=== PATIENT | male | born 1980 | race African-American/Black ===

== ENCOUNTER 2020-08-10 17:20 | Inpatient (IN) | payer MEDICAID ==
[~2020-08-10] VITALS: Ht 182.9 cm; Wt 94.8 kg
[2020-08-10] MEDS ORDERED: ACETAMINOPHEN 325MG TABLET PO STA (18:40)
[2020-08-10] MEDS ORDERED: CEFTRIAXONE 1 G PREMIX 50 ML IV ONE (18:45)
[2020-08-10] MEDS ORDERED: AZITHROMYCIN 500 MG in DEXT 5% WATER 250 ML IV ONE (18:45)
[2020-08-10] MEDS ORDERED: SODIUM CHLORIDE 0.9% 1,000 ML IV ONE ×2 (18:45)
[2020-08-10 18:54] LABS: HEMATOCRIT. 30.6 % (42.0-52.0); HEMOGLOBIN. 10.7 g/dL (14.0-18.0); MEAN CORPUSCULAR HEMOGLOBIN 30.9 pg (28.0-32.0); PLATELET 298 x1000/uL (130-400); RED BLOOD CELL COUNT 3.47 mill/uL (4.7-6.1)
[2020-08-10] MEDS ORDERED: OSELTAMIVIR 75MG CAPSULE PO ONE (19:00)
[2020-08-10 19:02] LABS: CHLORIDE 106 mEq/L (98-107)
[2020-08-10 19:05] LABS: PROTHROMBIN TIME 10.8 sec (9.6-11.0)
[2020-08-10 19:09] LABS: BETA HYDROXYBUTYRATE 0.7 mMol/L (0.0-0.3); PLATELET ESTIMATE NORMAL
[2020-08-10 19:22] LABS: BG BASE EXCESS -6.8 mmol/L (-2.0-2.0); BG CARBOXYHEMOGLOBIN 0.3 % (0.5-1.5); BG DEOXYHEMOGLOBIN 4.9 % (0.0-5.0); BG FRACTION INSPIRED OXYGEN 100; BG HCO3 ACT 17.3 mmol/L (22.0-26.0); BG METHEMOGLOBIN 0.2 % (0.0-1.5); BG OXYGEN SATURATION 95.1 % (92.0-98.5); BG OXYHEMOGLOBIN 94.6 % (94.0-97.0); BG PH 7.378 (7.350-7.450); BG PO2 84.6 mmHg (75.0-100.0); BG SAMPLE SITE RIGHT RADIAL; BG TOTAL HEMOGLOBIN 11.1 g/dL (12.0-18.0); BG TOTAL RESPIRATORY RATE 30 b/min; BG VENT MODE MASK - BIPAP
[2020-08-10] MEDS ORDERED: DEXAMETHASONE 10 MG/ML VIAL IV ONE (20:15)
[2020-08-10] MEDS ORDERED: INSULIN REGULAR (HUMULIN R) UD 100 UNITS/ML SYR SUBCUT ONE (20:30)
[2020-08-10] MEDS ORDERED: INSULIN REGULAR (HUMULIN R) 300UNITS/3ML VIAL SUBCUT SCH (22:30)
[2020-08-11 00:07] LABS: CLARITY URINE CLEAR (CLEAR); COLOR URINE YELLOW (YELLOW); KETONES URINE NEGATIVE (NEGATIVE); LEUKOCYTE ESTERASE URINE NEGATIVE (NEGATIVE); NITRITE URINE NEGATIVE (NEGATIVE); OCCULT BLOOD URINE 2+ (NEGATIVE); PROTEIN URINE 3+ (NEGATIVE); SPECIFIC GRAVITY URINE 1.022 (1.005-1.030); UROBILINOGEN URINE 0.2 E.U./dL (0.2-1.0)
[2020-08-11] MEDS ORDERED: ZOLPIDEM TARTRATE 5MG TABLET PO PRN (06:15)
[2020-08-11] MEDS ORDERED: CLONIDINE 0.1MG TABLET PO PRN (06:15)
[2020-08-11] MEDS ORDERED: ALBUTEROL 6.7GM HFA INHALER ORI PRN (06:15)
[2020-08-11] MEDS ORDERED: GUAIFENESIN 200MG/10ML SUGAR FREE UDC PO PRN (06:15)
[2020-08-11] MEDS ORDERED: MAGNESIUM/ALUMINUM HYDROXIDE/SIMETHICONE 30ML UDC PO PRN (06:15)
[2020-08-11] MEDS ORDERED: AMLODIPINE 10MG TABLET PO SCH (06:15)
[2020-08-11] MEDS ORDERED: DOCUSATE SODIUM 100MG CAPSULE PO PRN (06:15)
[2020-08-11] MEDS ORDERED: ONDANSETRON HCL 4MG/2ML INJ IV PRN (06:15)
[2020-08-11] MEDS ORDERED: NITROGLYCERIN 0.4MG TABLET SL SL PRN (06:15)
[2020-08-11] MEDS ORDERED: DEXTROSE 50% WATER 50ML SYRINGE IV PRN ×2 (06:15→14:45)
[2020-08-11] MEDS: BLOOD SUGAR DIAGNOSTIC STRIP TEST SCH ×11 (06:30→23:45)
[2020-08-11] MEDS: INSULIN LISPRO 100 UNITS/ML SUBCUT SCH ×3 (06:30→16:30)
[2020-08-11] MEDS ORDERED: INSULIN LISPRO 100 UNITS/ML SUBCUT SCH (07:00)
[2020-08-11] MEDS: ALBUTEROL 6.7GM HFA INHALER ORI SCH ×4 (08:00→22:30)
[2020-08-11] MEDS ORDERED: DEXAMETHASONE 4MG/ML 1ML VIAL IV SCH (09:00)
[2020-08-11 09:31] LABS: HEMATOCRIT. 27.8 % (42.0-52.0); HEMOGLOBIN. 9.5 g/dL (14.0-18.0); MEAN CORPUSCULAR HEMOGLOBIN 30.4 pg (28.0-32.0); MEAN CORPUSCULAR VOLUME 88.8 fL (80.0-94.0); MEAN PLATELET VOLUME 9.4 fl (7.4-10.4); PLATELET 315 x1000/uL (130-400); RED BLOOD CELL COUNT 3.13 mill/uL (4.7-6.1); RED CELL DISTRIBUTION WIDTH 13.4 % (11.6-14.6)
[2020-08-11 09:34] LABS: CHLORIDE 111 mEq/L (98-107)
[2020-08-11 09:40] LABS: TOTAL IRON BINDING CAPACITY 101 ug/dL (250-450)
[2020-08-11] MEDS ORDERED: INSULIN GLARGINE UD 100 UNITS/ML SYR SUBCUT SCH (10:00)
[2020-08-11] MEDS: ASCORBIC ACID 500 MG TABLET PO SCH ×2 (10:10→21:31)
[2020-08-11] MEDS: ASPIRIN 325MG EC TABLET PO SCH (10:10)
[2020-08-11] MEDS: GUAIFENESIN 600MG ER TABLET PO SCH ×2 (10:10→21:31)
[2020-08-11] MEDS: FAMOTIDINE 20MG TABLET PO SCH (10:11)
[2020-08-11 10:53] LABS: VITAMIN B12 SERUM > 2000.0 pg/mL (211-911)
[2020-08-11] MEDS: ENOXAPARIN 30MG/0.3ML SYR SUBCUT SCH (11:00)
[2020-08-11] MEDS: ZINC SULFATE 220 MG ( 50 ) CAPSULE PO SCH (11:00)
[2020-08-11] MEDS: METOPROLOL TARTRATE 25MG TABLET PO SCH ×2 (11:00→21:31)
[2020-08-11] MEDS: SODIUM CHLORIDE 0.9% 1,000 ML IV SCH (15:02)
[2020-08-11 17:53] LABS: PLATELET ESTIMATE NORMAL
[2020-08-11 18:38] LABS: CREATINE KINASE 177 IU/L (39-308)
[2020-08-11 18:39] LABS: CREATINE KINASE MB FRACTION < 1.0 ng/mL (0.5-3.6)
[2020-08-11] MEDS ORDERED: INSULIN REGULAR (DRIP) 100 UNITS in SODIUM CHLORIDE 0.9% 99 ML IV SCH ×2 (20:30→21:12)
[2020-08-11] MEDS: CEFTRIAXONE 1 G PREMIX 50 ML IV SCH (20:33)
[2020-08-11] MEDS: DEXAMETHASONE 10 MG/ML VIAL IV SCH (20:33)
[2020-08-11] MEDS: AZITHROMYCIN 500 MG in DEXT 5% WATER 250 ML IV SCH (22:50)
[2020-08-11 23:38] LABS: CREATINE KINASE 160 IU/L (39-308)
[2020-08-11 23:39] LABS: CREATINE KINASE MB FRACTION < 1.0 ng/mL (0.5-3.6)
[2020-08-12] MEDS: BLOOD SUGAR DIAGNOSTIC STRIP TEST SCH ×22 (00:45→23:17)
[2020-08-12] MEDS: SODIUM CHLORIDE 0.9% 1,000 ML IV SCH ×3 (03:55→10:45)
[2020-08-12 05:42] LABS: HEMATOCRIT. 30.7 % (42.0-52.0); HEMOGLOBIN. 10.2 g/dL (14.0-18.0); MEAN CORPUSCULAR HEMOGLOBIN 29.8 pg (28.0-32.0); MEAN CORPUSCULAR VOLUME 89.3 fL (80.0-94.0); MEAN PLATELET VOLUME 9.3 fl (7.4-10.4); PLATELET 405 x1000/uL (130-400); RED BLOOD CELL COUNT 3.44 mill/uL (4.7-6.1); RED CELL DISTRIBUTION WIDTH 13.6 % (11.6-14.6)
[2020-08-12 05:48] LABS: CHLORIDE 118 mEq/L (98-107)
[2020-08-12 05:57] LABS: PHOSPHORUS 4.5 mg/dL (2.5-4.9)
[2020-08-12] MEDS: ALBUTEROL 6.7GM HFA INHALER ORI SCH ×4 (06:00→20:59)
[2020-08-12] MEDS: GUAIFENESIN 600MG ER TABLET PO SCH ×2 (09:00→21:00)
[2020-08-12] MEDS: DEXAMETHASONE 10 MG/ML VIAL IV SCH ×2 (09:21→21:38)
[2020-08-12] MEDS: METOPROLOL TARTRATE 25MG TABLET PO SCH ×2 (09:22→21:43)
[2020-08-12] MEDS: ZINC SULFATE 220 MG ( 50 ) CAPSULE PO SCH (09:22)
[2020-08-12] MEDS: FAMOTIDINE 20MG TABLET PO SCH (09:22)
[2020-08-12] MEDS: ASPIRIN 325MG EC TABLET PO SCH (09:22)
[2020-08-12] MEDS: ENOXAPARIN 30MG/0.3ML SYR SUBCUT SCH (09:22)
[2020-08-12] MEDS: AMLODIPINE 10MG TABLET PO SCH (09:50)
[2020-08-12] MEDS: ASCORBIC ACID 500 MG TABLET PO SCH ×2 (09:50→21:42)
[2020-08-12 10:13] LABS: BG BASE EXCESS -8.4 mmol/L (-2.0-2.0); BG CARBOXYHEMOGLOBIN 0.2 % (0.5-1.5); BG DEOXYHEMOGLOBIN 2.4 % (0.0-5.0); BG FRACTION INSPIRED OXYGEN 100; BG HCO3 ACT 15.8 mmol/L (22.0-26.0); BG METHEMOGLOBIN 0.3 % (0.0-1.5); BG OXYGEN SATURATION 97.6 % (92.0-98.5); BG OXYHEMOGLOBIN 97.1 % (94.0-97.0); BG PCO2 28.5 mmHg (35.0-45.0); BG PH 7.362 (7.350-7.450); BG SAMPLE SITE RIGHT RADIAL; BG TOTAL HEMOGLOBIN 10.2 g/dL (12.0-18.0); BG TOTAL RESPIRATORY RATE 25 b/min; BG VENT MODE MASK - BIPAP
[2020-08-12 13:14] LABS: NUCLEATED RED BLOOD CELLS 1 /100 WBC; PLATELET ESTIMATE SLIGHTLY INCREASED
[2020-08-12] MEDS: SODIUM CHLORIDE 0.45% 1,000 ML IV SCH ×3 (17:52→23:20)
[2020-08-12] MEDS: CEFTRIAXONE 1 G PREMIX 50 ML IV SCH (21:38)
[2020-08-12] MEDS: AZITHROMYCIN 500 MG in DEXT 5% WATER 250 ML IV SCH (22:30)
[2020-08-13] MEDS: BLOOD SUGAR DIAGNOSTIC STRIP TEST SCH ×9 (00:31→20:42)
[2020-08-13] MEDS: INSULIN LISPRO 100 UNITS/ML SUBCUT SCH ×7 (00:35→17:00)
[2020-08-13] MEDS: ALBUTEROL 6.7GM HFA INHALER ORI SCH ×3 (02:20→15:00)
[2020-08-13 05:15] LABS: HEMATOCRIT. 30.4 % (42.0-52.0); HEMOGLOBIN. 10.3 g/dL (14.0-18.0); MEAN CORPUSCULAR HEMOGLOBIN 29.5 pg (28.0-32.0); MEAN CORPUSCULAR VOLUME 87.4 fL (80.0-94.0); MEAN PLATELET VOLUME 9.4 fl (7.4-10.4); PLATELET 406 x1000/uL (130-400); RED BLOOD CELL COUNT 3.48 mill/uL (4.7-6.1); RED CELL DISTRIBUTION WIDTH 13.2 % (11.6-14.6)
[2020-08-13 05:21] LABS: PHOSPHORUS 5.3 mg/dL (2.5-4.9)
[2020-08-13 05:22] LABS: BETA HYDROXYBUTYRATE 0.6 mMol/L (0.0-0.3)
[2020-08-13] MEDS: SODIUM CHLORIDE 0.45% 1,000 ML IV SCH ×3 (07:05→20:21)
[2020-08-13] MEDS ORDERED: DEXTROSE 50% WATER 50ML SYRINGE IV PRN (09:00)
[2020-08-13] MEDS: ASPIRIN 325MG EC TABLET PO SCH (09:21)
[2020-08-13] MEDS: ZINC SULFATE 220 MG ( 50 ) CAPSULE PO SCH (09:21)
[2020-08-13] MEDS: METOPROLOL TARTRATE 25MG TABLET PO SCH ×2 (09:21→20:21)
[2020-08-13] MEDS: DEXAMETHASONE 10 MG/ML VIAL IV SCH ×2 (09:21→20:07)
[2020-08-13] MEDS: FAMOTIDINE 20MG TABLET PO SCH (09:21)
[2020-08-13 09:48] LABS: BG BASE EXCESS -10.1 mmol/L (-2.0-2.0); BG CARBOXYHEMOGLOBIN 0.3 % (0.5-1.5); BG DEOXYHEMOGLOBIN 8.9 % (0.0-5.0); BG FRACTION INSPIRED OXYGEN 100; BG HCO3 ACT 13.8 mmol/L (22.0-26.0); BG METHEMOGLOBIN 0.2 % (0.0-1.5); BG OXYGEN SATURATION 91.1 % (92.0-98.5); BG OXYHEMOGLOBIN 90.6 % (94.0-97.0); BG PH 7.361 (7.350-7.450); BG PO2 63.9 mmHg (75.0-100.0); BG SAMPLE SITE RIGHT RADIAL; BG TOTAL HEMOGLOBIN 10.5 g/dL (12.0-18.0); BG VENT MODE MASK - BIPAP
[2020-08-13 11:09] LABS: PLATELET ESTIMATE SLIGHTLY INCREASED
[2020-08-13] MEDS: INSULIN GLARGINE UD 100 UNITS/ML SYR SUBCUT SCH (11:29)
[2020-08-13] MEDS: ENOXAPARIN 30MG/0.3ML SYR SUBCUT SCH (11:30)
[2020-08-13] MEDS: GUAIFENESIN 600MG ER TABLET PO SCH ×2 (11:30→20:20)
[2020-08-13] MEDS: AMLODIPINE 10MG TABLET PO SCH (11:30)
[2020-08-13] MEDS: ASCORBIC ACID 500 MG TABLET PO SCH ×2 (11:31→20:20)
[2020-08-13] MEDS: CEFTRIAXONE 1 G PREMIX 50 ML IV SCH (20:07)
[2020-08-13] MEDS: AZITHROMYCIN 500 MG in DEXT 5% WATER 250 ML IV SCH (21:09)
[2020-08-14] MEDS: BLOOD SUGAR DIAGNOSTIC STRIP TEST SCH ×9 (06:53→20:38)
[2020-08-14] MEDS: INSULIN LISPRO 100 UNITS/ML SUBCUT SCH ×8 (08:11→16:30)
[2020-08-14] MEDS: SODIUM CHLORIDE 0.45% 1,000 ML IV SCH ×2 (08:11→11:49)
[2020-08-14] MEDS: GUAIFENESIN 600MG ER TABLET PO SCH ×2 (09:00→21:00)
[2020-08-14] MEDS: ENOXAPARIN 30MG/0.3ML SYR SUBCUT SCH (09:00)
[2020-08-14] MEDS: ALBUTEROL 6.7GM HFA INHALER ORI SCH (09:17)
[2020-08-14] MEDS: DEXAMETHASONE 10 MG/ML VIAL IV SCH (09:53)
[2020-08-14] MEDS: ASPIRIN 325MG EC TABLET PO SCH (09:53)
[2020-08-14] MEDS: METOPROLOL TARTRATE 25MG TABLET PO SCH ×3 (09:54→21:00)
[2020-08-14] MEDS: FAMOTIDINE 20MG TABLET PO SCH (09:56)
[2020-08-14] MEDS: ASCORBIC ACID 500 MG TABLET PO SCH ×2 (09:56→21:00)
[2020-08-14] MEDS: ZINC SULFATE 220 MG ( 50 ) CAPSULE PO SCH (09:56)
[2020-08-14] MEDS: AMLODIPINE 10MG TABLET PO SCH (09:56)
[2020-08-14 10:19] LABS: CHLORIDE 128 mEq/L (98-107)
[2020-08-14 10:30] LABS: BETA HYDROXYBUTYRATE 0.2 mMol/L (0.0-0.3)
[2020-08-14] MEDS: INSULIN GLARGINE UD 100 UNITS/ML SYR SUBCUT SCH (10:51)
[2020-08-14] MEDS: LORAZEPAM 2MG/ML CPJ IV PRN ×2 (14:06→18:15)
[2020-08-14 15:06] LABS: BG BASE EXCESS -5.2 mmol/L (-2.0-2.0); BG CARBOXYHEMOGLOBIN 0.3 % (0.5-1.5); BG DEOXYHEMOGLOBIN 12.8 % (0.0-5.0); BG FRACTION INSPIRED OXYGEN 100; BG HCO3 ACT 19.5 mmol/L (22.0-26.0); BG METHEMOGLOBIN 0.3 % (0.0-1.5); BG OXYGEN SATURATION 87.1 % (92.0-98.5); BG OXYHEMOGLOBIN 86.6 % (94.0-97.0); BG PCO2 34.7 mmHg (35.0-45.0); BG PH 7.367 (7.350-7.450); BG PO2 53.6 mmHg (75.0-100.0); BG SAMPLE SITE RIGHT BRACHIAL; BG TOTAL HEMOGLOBIN 10.6 g/dL (12.0-18.0); BG VENT MODE MASK - NRB
[2020-08-14] MEDS: DEXT 5%/0.2% NACL 1,000 ML IV SCH (15:33)
[2020-08-14] MEDS: INSULIN LISPRO (HIGH DOSE) 100 UNITS/ML SUBCUT SCH ×2 (17:00→21:00)
[2020-08-14 18:38] LABS: BG BASE EXCESS -7.9 mmol/L (-2.0-2.0); BG CARBOXYHEMOGLOBIN 0.3 % (0.5-1.5); BG DEOXYHEMOGLOBIN 8.7 % (0.0-5.0); BG FRACTION INSPIRED OXYGEN 100; BG HCO3 ACT 16.3 mmol/L (22.0-26.0); BG METHEMOGLOBIN 0.2 % (0.0-1.5); BG OXYGEN SATURATION 91.3 % (92.0-98.5); BG OXYHEMOGLOBIN 90.8 % (94.0-97.0); BG PCO2 29.1 mmHg (35.0-45.0); BG PH 7.366 (7.350-7.450); BG PO2 64.6 mmHg (75.0-100.0); BG SAMPLE SITE RIGHT BRACHIAL; BG TOTAL HEMOGLOBIN 10.6 g/dL (12.0-18.0); BG VENT MODE HIGH FLOW
[2020-08-14 19:53] LABS: HEMATOCRIT. 29.2 % (42.0-52.0); HEMOGLOBIN. 9.5 g/dL (14.0-18.0); MEAN CORPUSCULAR HEMOGLOBIN 29.7 pg (28.0-32.0); MEAN CORPUSCULAR VOLUME 90.8 fL (80.0-94.0); MEAN PLATELET VOLUME 8.9 fl (7.4-10.4); PLATELET 303 x1000/uL (130-400); RED BLOOD CELL COUNT 3.21 mill/uL (4.7-6.1); RED CELL DISTRIBUTION WIDTH 13.8 % (11.6-14.6)
[2020-08-14] MEDS ORDERED: METOPROLOL TARTRATE 5MG/5ML VIAL IV ONE (21:00)
[2020-08-14] MEDS ORDERED: PROPOFOL 10MG/ML 100ML 100 ML IV ONE (21:45)
[2020-08-14] MEDS ORDERED: ETOMIDATE 2MG/ML 10ML VIAL IV ONE (21:45)
[2020-08-14 22:36] LABS: PLATELET ESTIMATE NORMAL
[2020-08-14] MEDS: CEFTRIAXONE 1 G PREMIX 50 ML IV SCH (23:41)
[2020-08-14] MEDS: DEXTROSE 50% WATER 50ML SYRINGE IV PRN (23:42)
[2020-08-15] VITALS (76 sets, daily range): BP systolic 96–161; BP diastolic 54–128
[2020-08-15] MEDS: ALBUTEROL 6.7GM HFA INHALER ORI SCH ×2 (00:21→00:22)
[2020-08-15] MEDS ORDERED: PROPOFOL 10 MG/ML 100 ML IV PRN (00:30)
[2020-08-15] MEDS: DEXAMETHASONE 10 MG/ML VIAL IV SCH ×3 (00:31→21:02)
[2020-08-15] MEDS: AZITHROMYCIN 500 MG in DEXT 5% WATER 250 ML IV SCH ×2 (00:31→21:15)
[2020-08-15] MEDS: DEXT 5%/0.2% NACL 1,000 ML IV SCH (00:31)
[2020-08-15 01:24] LABS: BG BASE EXCESS -6.4 mmol/L (-2.0-2.0); BG CARBOXYHEMOGLOBIN 0.2 % (0.5-1.5); BG DEOXYHEMOGLOBIN 6.8 % (0.0-5.0); BG FRACTION INSPIRED OXYGEN 100; BG METHEMOGLOBIN 0.3 % (0.0-1.5); BG OXYGEN SATURATION 93.2 % (92.0-98.5); BG OXYHEMOGLOBIN 92.7 % (94.0-97.0); BG PCO2 37.5 mmHg (35.0-45.0); BG PH 7.323 (7.350-7.450); BG PO2 72.7 mmHg (75.0-100.0); BG SAMPLE SITE RIGHT RADIAL; BG TOTAL HEMOGLOBIN 8.4 g/dL (12.0-18.0); BG VENT MODE VENT - AC
[2020-08-15] MEDS: DEXTROSE 50% WATER 50ML SYRINGE IV PRN (04:11)
[2020-08-15 05:50] LABS: HEMATOCRIT. 24.7 % (42.0-52.0); HEMOGLOBIN. 8.7 g/dL (14.0-18.0); MEAN CORPUSCULAR HEMOGLOBIN 30.8 pg (28.0-32.0); MEAN CORPUSCULAR VOLUME 87.8 fL (80.0-94.0); MEAN PLATELET VOLUME 9.3 fl (7.4-10.4); PLATELET 287 x1000/uL (130-400); RED BLOOD CELL COUNT 2.81 mill/uL (4.7-6.1); RED CELL DISTRIBUTION WIDTH 13.6 % (11.6-14.6)
[2020-08-15] MEDS: PROPOFOL 10MG/ML 100ML 100 ML IV PRN ×3 (06:20→22:45)
[2020-08-15] MEDS ORDERED: DEXT 10% WATER 1,000 ML IV SCH (06:30)
[2020-08-15] MEDS ORDERED: DEXTROSE 50% WATER 50ML SYRINGE IV PRN (06:30)
[2020-08-15] MEDS: BLOOD SUGAR DIAGNOSTIC STRIP TEST SCH ×12 (07:17→18:00)
[2020-08-15] MEDS: INSULIN LISPRO (HIGH DOSE) 100 UNITS/ML SUBCUT SCH ×4 (08:20→23:12)
[2020-08-15] MEDS: ENOXAPARIN 40MG/0.4ML SYR SUBCUT SCH (09:33)
[2020-08-15] MEDS: ASCORBIC ACID 500 MG TABLET PO SCH ×2 (09:33→21:02)
[2020-08-15] MEDS: GUAIFENESIN 600MG ER TABLET PO SCH ×2 (09:33→21:14)
[2020-08-15] MEDS: FAMOTIDINE 20MG TABLET PO SCH (09:34)
[2020-08-15] MEDS: ZINC SULFATE 220 MG ( 50 ) CAPSULE PO SCH (09:34)
[2020-08-15] MEDS: AMLODIPINE 10MG TABLET PO SCH (09:34)
[2020-08-15] MEDS: METOPROLOL TARTRATE 25MG TABLET PO SCH ×2 (09:35→21:00)
[2020-08-15] MEDS: ASPIRIN 325MG EC TABLET PO SCH (09:35)
[2020-08-15] MEDS: INSULIN GLARGINE UD 100 UNITS/ML SYR SUBCUT SCH (10:16)
[2020-08-15 10:52] LABS: BG BASE EXCESS -6.2 mmol/L (-2.0-2.0); BG CARBOXYHEMOGLOBIN 0.2 % (0.5-1.5); BG DEOXYHEMOGLOBIN 2.5 % (0.0-5.0); BG HCO3 ACT 19.4 mmol/L (22.0-26.0); BG METHEMOGLOBIN 0.2 % (0.0-1.5); BG OXYGEN SATURATION 97.5 % (92.0-98.5); BG OXYHEMOGLOBIN 97.1 % (94.0-97.0); BG PCO2 38.6 mmHg (35.0-45.0); BG PH 7.319 (7.350-7.450); BG PO2 121.8 mmHg (75.0-100.0); BG SAMPLE SITE RIGHT RADIAL; BG TOTAL HEMOGLOBIN 8.8 g/dL (12.0-18.0); BG VENT MODE VENT - AC
[2020-08-15] MEDS: DEXTROSE 5% WATER 1,000 ML IV SCH ×2 (10:58→21:14)
[2020-08-15] MEDS ORDERED: CEFTRIAXONE 1,000 MG in DEXTROSE 5% WATER 50 ML IV SCH (21:00)
[2020-08-15 22:02] LABS: PLATELET ESTIMATE NORMAL
[2020-08-16] VITALS (93 sets, daily range): BP systolic 96–154; BP diastolic 38–95
[2020-08-16] MEDS: PROPOFOL 10MG/ML 100ML 100 ML IV PRN (03:13)
[2020-08-16 06:01] LABS: HEMATOCRIT. 24.9 % (42.0-52.0); HEMOGLOBIN. 8.3 g/dL (14.0-18.0); MEAN CORPUSCULAR HEMOGLOBIN 29.6 pg (28.0-32.0); MEAN CORPUSCULAR VOLUME 88.7 fL (80.0-94.0); MEAN PLATELET VOLUME 10.3 fl (7.4-10.4); PLATELET 235 x1000/uL (130-400)
[2020-08-16 06:13] LABS: CHLORIDE 122 mEq/L (98-107)
[2020-08-16] MEDS: BLOOD SUGAR DIAGNOSTIC STRIP TEST SCH ×4 (06:44→21:03)
[2020-08-16] MEDS: INSULIN LISPRO (HIGH DOSE) 100 UNITS/ML SUBCUT SCH ×4 (06:45→21:00)
[2020-08-16] MEDS ORDERED: PROPOFOL 10MG/ML 100ML 100 ML IV PRN (07:45)
[2020-08-16] MEDS: DEXTROSE 5% WATER 1,000 ML IV SCH ×2 (07:55→18:09)
[2020-08-16] MEDS: METOPROLOL TARTRATE 25MG TABLET PO SCH ×2 (08:06→09:17)
[2020-08-16] MEDS: AMLODIPINE 10MG TABLET PO SCH (08:07)
[2020-08-16] MEDS: FAMOTIDINE 20MG TABLET PO SCH (08:33)
[2020-08-16] MEDS: ZINC SULFATE 220 MG ( 50 ) CAPSULE PO SCH (08:33)
[2020-08-16] MEDS: ASPIRIN 325MG EC TABLET PO SCH (08:33)
[2020-08-16] MEDS: GUAIFENESIN 600MG ER TABLET PO SCH ×2 (08:33→21:08)
[2020-08-16] MEDS: DEXAMETHASONE 10 MG/ML VIAL IV SCH ×2 (08:34→21:08)
[2020-08-16] MEDS: ASCORBIC ACID 500 MG TABLET PO SCH ×2 (08:35→21:08)
[2020-08-16] MEDS: ENOXAPARIN 40MG/0.4ML SYR SUBCUT SCH (08:37)
[2020-08-16] MEDS: ALBUTEROL 6.7GM HFA INHALER ORI SCH ×2 (09:19→12:55)
[2020-08-16] MEDS: LORAZEPAM 2MG/ML CPJ IV PRN (09:54)
[2020-08-16] MEDS: MIDAZOLAM HCL 100 MG in DEXT 5% WATER 80 ML IV PRN ×2 (10:33→20:41)
[2020-08-16] MEDS: FENTANYL CITRATE/PF 2,500 MCG in SODIUM CHLORIDE 0.9% 200 ML IV PRN ×2 (10:35→20:42)
[2020-08-16] MEDS: INSULIN GLARGINE UD 100 UNITS/ML SYR SUBCUT SCH (11:36)
[2020-08-16 11:49] LABS: BG BASE EXCESS -9.5 mmol/L (-2.0-2.0); BG CARBOXYHEMOGLOBIN 0.3 % (0.5-1.5); BG DEOXYHEMOGLOBIN 3.7 % (0.0-5.0); BG FRACTION INSPIRED OXYGEN 90; BG HCO3 ACT 15.7 mmol/L (22.0-26.0); BG METHEMOGLOBIN 0.3 % (0.0-1.5); BG OXYGEN SATURATION 96.3 % (92.0-98.5); BG OXYHEMOGLOBIN 95.7 % (94.0-97.0); BG PCO2 31.5 mmHg (35.0-45.0); BG PH 7.316 (7.350-7.450); BG SAMPLE SITE RIGHT RADIAL; BG TOTAL HEMOGLOBIN 8.9 g/dL (12.0-18.0); BG VENT MODE VENT - AC
[2020-08-16 13:30] LABS: PLATELET ESTIMATE NORMAL
[2020-08-16 17:47] LABS: HEMATOCRIT. 24.3 % (42.0-52.0); HEMOGLOBIN. 8.1 g/dL (14.0-18.0); MEAN CORPUSCULAR HEMOGLOBIN 29.6 pg (28.0-32.0); MEAN CORPUSCULAR VOLUME 89.2 fL (80.0-94.0); MEAN PLATELET VOLUME 10.5 fl (7.4-10.4); PLATELET 248 x1000/uL (130-400); RED BLOOD CELL COUNT 2.73 mill/uL (4.7-6.1)
[2020-08-16 19:52] LABS: PLATELET ESTIMATE NORMAL
[2020-08-16 21:49] LABS: BG BASE EXCESS -8.6 mmol/L (-2.0-2.0); BG CARBOXYHEMOGLOBIN 0.3 % (0.5-1.5); BG DEOXYHEMOGLOBIN 9.1 % (0.0-5.0); BG FRACTION INSPIRED OXYGEN 100; BG HCO3 ACT 17.2 mmol/L (22.0-26.0); BG METHEMOGLOBIN 0.1 % (0.0-1.5); BG OXYGEN SATURATION 90.9 % (92.0-98.5); BG OXYHEMOGLOBIN 90.5 % (94.0-97.0); BG PCO2 36.2 mmHg (35.0-45.0); BG PH 7.294 (7.350-7.450); BG PO2 65.8 mmHg (75.0-100.0); BG SAMPLE SITE RIGHT RADIAL; BG TOTAL RESPIRATORY RATE 28 b/min; BG VENT MODE VENT - AC
[2020-08-16] MEDS ORDERED: SODIUM BICARBONATE 8.4% 1 MEQ/ML 50ML SYR IV NR (22:30)
[2020-08-17] VITALS (58 sets, daily range): BP systolic 88–135; BP diastolic 42–86
[2020-08-17] MEDS: ALBUTEROL 6.7GM HFA INHALER ORI SCH ×2 (00:20→20:13)
[2020-08-17] MEDS: DEXTROSE 5% WATER 1,000 ML IV SCH ×2 (05:06→14:50)
[2020-08-17] MEDS: MIDAZOLAM HCL 100 MG in DEXT 5% WATER 80 ML IV PRN (05:07)
[2020-08-17 05:49] LABS: HEMATOCRIT. 25.9 % (42.0-52.0); HEMOGLOBIN. 8.7 g/dL (14.0-18.0); MEAN CORPUSCULAR HEMOGLOBIN 30.1 pg (28.0-32.0); MEAN CORPUSCULAR VOLUME 89.9 fL (80.0-94.0); MEAN PLATELET VOLUME 10.6 fl (7.4-10.4); PLATELET 274 x1000/uL (130-400); RED BLOOD CELL COUNT 2.88 mill/uL (4.7-6.1); RED CELL DISTRIBUTION WIDTH 14.2 % (11.6-14.6)
[2020-08-17] MEDS: BLOOD SUGAR DIAGNOSTIC STRIP TEST SCH ×4 (06:29→21:54)
[2020-08-17] MEDS: INSULIN LISPRO (HIGH DOSE) 100 UNITS/ML SUBCUT SCH ×4 (06:29→21:54)
[2020-08-17] MEDS: FENTANYL CITRATE/PF 2,500 MCG in SODIUM CHLORIDE 0.9% 200 ML IV PRN (06:33)
[2020-08-17 07:49] LABS: BG BASE EXCESS -8.4 mmol/L (-2.0-2.0); BG CARBOXYHEMOGLOBIN 0.3 % (0.5-1.5); BG DEOXYHEMOGLOBIN 2.3 % (0.0-5.0); BG FRACTION INSPIRED OXYGEN 100; BG HCO3 ACT 19.5 mmol/L (22.0-26.0); BG METHEMOGLOBIN 0.4 % (0.0-1.5); BG OXYGEN SATURATION 97.7 % (92.0-98.5); BG PCO2 51.3 mmHg (35.0-45.0); BG PH 7.197 (7.350-7.450); BG PO2 126.7 mmHg (75.0-100.0); BG SAMPLE SITE RIGHT RADIAL; BG TOTAL HEMOGLOBIN 9.4 g/dL (12.0-18.0); BG VENT MODE VENT - AC
[2020-08-17] MEDS: METOPROLOL TARTRATE 25MG TABLET PO SCH ×2 (09:00→21:53)
[2020-08-17] MEDS: AMLODIPINE 10MG TABLET PO SCH (09:00)
[2020-08-17 09:29] LABS: PHOSPHORUS 7.4 mg/dL (2.5-4.9)
[2020-08-17] MEDS: ZINC SULFATE 220 MG ( 50 ) CAPSULE PO SCH (09:39)
[2020-08-17] MEDS: GUAIFENESIN 600MG ER TABLET PO SCH ×2 (09:39→21:53)
[2020-08-17] MEDS: FAMOTIDINE 20MG TABLET PO SCH (09:39)
[2020-08-17] MEDS: ASPIRIN 325MG EC TABLET PO SCH (09:39)
[2020-08-17] MEDS: ASCORBIC ACID 500 MG TABLET PO SCH ×2 (09:39→21:53)
[2020-08-17] MEDS: DEXAMETHASONE 10 MG/ML VIAL IV SCH ×2 (09:39→21:53)
[2020-08-17] MEDS: ENOXAPARIN 40MG/0.4ML SYR SUBCUT SCH (09:39)
[2020-08-17] MEDS ORDERED: NOREPINEPHRINE 32 MG in DEXT 5% WATER 218 ML IV PRN (09:45)
[2020-08-17] MEDS: INSULIN GLARGINE UD 100 UNITS/ML SYR SUBCUT SCH (10:00)
[2020-08-17] MEDS ORDERED: SODIUM BICARBONATE 8.4% 1 MEQ/ML 50ML SYR IV NR (11:00)
[2020-08-17 14:11] LABS: PLATELET ESTIMATE NORMAL
[2020-08-17] MEDS ORDERED: IPRATROPIUM BROMIDE (0.02%) 0.5MG/2.5ML NEB HHN SCH (16:00)
[2020-08-18] VITALS (53 sets, daily range): BP systolic 97–165; BP diastolic 53–93
[2020-08-18] MEDS: ALBUTEROL 6.7GM HFA INHALER ORI SCH ×2 (00:09→04:10)
[2020-08-18] MEDS: DEXTROSE 5% WATER 1,000 ML IV SCH ×3 (01:06→21:12)
[2020-08-18 06:01] LABS: HEMOGLOBIN. 7.3 g/dL (14.0-18.0); MEAN CORPUSCULAR VOLUME 88.8 fL (80.0-94.0); MEAN PLATELET VOLUME 10.7 fl (7.4-10.4); PLATELET 238 x1000/uL (130-400); RED BLOOD CELL COUNT 2.35 mill/uL (4.7-6.1); RED CELL DISTRIBUTION WIDTH 13.4 % (11.6-14.6)
[2020-08-18] MEDS ORDERED: MIDAZOLAM HCL 100 MG in SODIUM CHLORIDE 0.9% 80 ML IV PRN (06:30)
[2020-08-18 06:45] LABS: HEMATOCRIT. 20.8 % (42.0-52.0)
[2020-08-18 07:12] LABS: BG BASE EXCESS -7.3 mmol/L (-2.0-2.0); BG CARBOXYHEMOGLOBIN 0.3 % (0.5-1.5); BG DEOXYHEMOGLOBIN 3.1 % (0.0-5.0); BG FRACTION INSPIRED OXYGEN 100; BG HCO3 ACT 18.9 mmol/L (22.0-26.0); BG METHEMOGLOBIN 0.5 % (0.0-1.5); BG OXYGEN SATURATION 96.9 % (92.0-98.5); BG OXYHEMOGLOBIN 96.1 % (94.0-97.0); BG PCO2 41.2 mmHg (35.0-45.0); BG PH 7.279 (7.350-7.450); BG SAMPLE SITE RIGHT RADIAL; BG TOTAL HEMOGLOBIN 7.3 g/dL (12.0-18.0); BG TOTAL RESPIRATORY RATE 41 b/min; BG VENT MODE VENT - AC
[2020-08-18] MEDS: BLOOD SUGAR DIAGNOSTIC STRIP TEST SCH ×4 (08:38→20:40)
[2020-08-18] MEDS: ASPIRIN 325MG EC TABLET PO SCH (10:02)
[2020-08-18] MEDS: ZINC SULFATE 220 MG ( 50 ) CAPSULE PO SCH (10:02)
[2020-08-18] MEDS: AMLODIPINE 10MG TABLET PO SCH (10:02)
[2020-08-18] MEDS: METOPROLOL TARTRATE 25MG TABLET PO SCH ×2 (10:03→20:40)
[2020-08-18] MEDS: ASCORBIC ACID 500 MG TABLET PO SCH ×2 (10:03→20:39)
[2020-08-18] MEDS: ENOXAPARIN 40MG/0.4ML SYR SUBCUT SCH (10:04)
[2020-08-18] MEDS: INSULIN GLARGINE UD 100 UNITS/ML SYR SUBCUT SCH (10:08)
[2020-08-18] MEDS: INSULIN LISPRO (HIGH DOSE) 100 UNITS/ML SUBCUT SCH ×4 (10:09→20:40)
[2020-08-18] MEDS: DEXAMETHASONE 10 MG/ML VIAL IV SCH ×2 (10:31→20:37)
[2020-08-18] MEDS: FAMOTIDINE 20MG TABLET PO SCH (10:31)
[2020-08-18] MEDS: GUAIFENESIN 600MG ER TABLET PO SCH ×2 (10:31→20:37)
[2020-08-18] MEDS: FENTANYL CITRATE/PF 2,500 MCG in SODIUM CHLORIDE 0.9% 200 ML IV PRN (11:37)
[2020-08-18] MEDS ORDERED: SODIUM BICARBONATE 4% (2.4MEQ) 5ML VIAL IV ONE (13:58)
[2020-08-18] MEDS ORDERED: LIDOCAINE HCL 1% 20ML VIAL (Pyxis) INJ ONE (13:58)
[2020-08-18] MEDS: IPRATROPIUM/ALBUTEROL 0.5-3(2.5)MG/3ML NEB HHN SCH (15:58)
[2020-08-18 18:25] LABS: PLATELET ESTIMATE NORMAL
[2020-08-18] MEDS ORDERED: MIDAZOLAM HCL 100 MG in DEXT 5% WATER 80 ML IV PRN (19:15)
[2020-08-19] VITALS (71 sets, daily range): BP systolic 103–152; BP diastolic 57–89
[2020-08-19] MEDS: IPRATROPIUM/ALBUTEROL 0.5-3(2.5)MG/3ML NEB HHN SCH ×4 (00:05→20:12)
[2020-08-19] MEDS: MIDAZOLAM HCL 100 MG in DEXT 5% WATER 80 ML IV PRN ×2 (02:43→22:30)
[2020-08-19 05:59] LABS: CHLORIDE 106 mEq/L (98-107)
[2020-08-19 06:01] LABS: HEMATOCRIT. 23.1 % (42.0-52.0); HEMOGLOBIN. 7.8 g/dL (14.0-18.0); MEAN CORPUSCULAR VOLUME 89.4 fL (80.0-94.0); MEAN PLATELET VOLUME 11.2 fl (7.4-10.4); PLATELET 250 x1000/uL (130-400); RED BLOOD CELL COUNT 2.58 mill/uL (4.7-6.1); RED CELL DISTRIBUTION WIDTH 13.5 % (11.6-14.6)
[2020-08-19 06:10] LABS: PHOSPHORUS 6.6 mg/dL (2.5-4.9)
[2020-08-19] MEDS: FENTANYL CITRATE/PF 2,500 MCG in SODIUM CHLORIDE 0.9% 200 ML IV PRN ×2 (07:14→23:42)
[2020-08-19] MEDS: BLOOD SUGAR DIAGNOSTIC STRIP TEST SCH ×4 (07:50→21:00)
[2020-08-19] MEDS: GUAIFENESIN 600MG ER TABLET PO SCH (09:00)
[2020-08-19 09:11] LABS: BG BASE EXCESS -5.2 mmol/L (-2.0-2.0); BG CARBOXYHEMOGLOBIN 0.3 % (0.5-1.5); BG DEOXYHEMOGLOBIN 3.3 % (0.0-5.0); BG FRACTION INSPIRED OXYGEN 100; BG HCO3 ACT 20.3 mmol/L (22.0-26.0); BG OXYGEN SATURATION 96.7 % (92.0-98.5); BG OXYHEMOGLOBIN 96.4 % (94.0-97.0); BG PCO2 39.5 mmHg (35.0-45.0); BG PH 7.328 (7.350-7.450); BG SAMPLE SITE RIGHT RADIAL; BG TOTAL HEMOGLOBIN 7.3 g/dL (12.0-18.0); BG TOTAL RESPIRATORY RATE 30 b/min; BG VENT MODE VENT - AC
[2020-08-19] MEDS: ASPIRIN 325MG EC TABLET PO SCH (10:03)
[2020-08-19] MEDS: ZINC SULFATE 220 MG ( 50 ) CAPSULE PO SCH (10:03)
[2020-08-19] MEDS: FAMOTIDINE 20MG TABLET PO SCH (10:03)
[2020-08-19] MEDS: DEXAMETHASONE 10 MG/ML VIAL IV SCH ×2 (10:03→22:11)
[2020-08-19] MEDS: AMLODIPINE 10MG TABLET PO SCH (10:03)
[2020-08-19] MEDS: METOPROLOL TARTRATE 25MG TABLET PO SCH ×2 (10:03→22:11)
[2020-08-19] MEDS: ASCORBIC ACID 500 MG TABLET PO SCH ×2 (10:03→22:11)
[2020-08-19] MEDS: ENOXAPARIN 40MG/0.4ML SYR SUBCUT SCH (10:04)
[2020-08-19] MEDS: INSULIN GLARGINE UD 100 UNITS/ML SYR SUBCUT SCH (10:04)
[2020-08-19] MEDS: INSULIN LISPRO (HIGH DOSE) 100 UNITS/ML SUBCUT SCH ×4 (10:05→23:04)
[2020-08-19] MEDS ORDERED: GUAIFENESIN-DM 200MG-20MG/10ML UDC PO PRN (11:15)
[2020-08-19] MEDS: SODIUM BICARBONATE 50 MEQ in DEXTROSE 5% WATER 1,000 ML IV SCH (12:35)
[2020-08-19 14:55] LABS: PLATELET ESTIMATE NORMAL
[2020-08-20] VITALS (72 sets, daily range): BP systolic 110–157; BP diastolic 55–94
[2020-08-20] MEDS: IPRATROPIUM/ALBUTEROL 0.5-3(2.5)MG/3ML NEB HHN SCH ×5 (03:54→20:28)
[2020-08-20 06:23] LABS: HEMATOCRIT. 23.5 % (42.0-52.0); HEMOGLOBIN. 7.7 g/dL (14.0-18.0); MEAN CORPUSCULAR HEMOGLOBIN 29.4 pg (28.0-32.0); MEAN CORPUSCULAR VOLUME 89.4 fL (80.0-94.0); MEAN PLATELET VOLUME 10.5 fl (7.4-10.4); PLATELET 282 x1000/uL (130-400); RED BLOOD CELL COUNT 2.63 mill/uL (4.7-6.1); RED CELL DISTRIBUTION WIDTH 13.3 % (11.6-14.6)
[2020-08-20 06:26] LABS: CHLORIDE 109 mEq/L (98-107)
[2020-08-20] MEDS: INSULIN LISPRO (HIGH DOSE) 100 UNITS/ML SUBCUT SCH ×4 (07:20→21:00)
[2020-08-20] MEDS: BLOOD SUGAR DIAGNOSTIC STRIP TEST SCH ×4 (07:20→21:00)
[2020-08-20 07:45] LABS: BG BASE EXCESS -5.9 mmol/L (-2.0-2.0); BG FRACTION INSPIRED OXYGEN 100; BG HCO3 ACT 20.5 mmol/L (22.0-26.0); BG METHEMOGLOBIN 0.3 % (0.0-1.5); BG OXYHEMOGLOBIN 93.7 % (94.0-97.0); BG PCO2 44.9 mmHg (35.0-45.0); BG PH 7.278 (7.350-7.450); BG PO2 78.1 mmHg (75.0-100.0); BG SAMPLE SITE RIGHT RADIAL; BG TOTAL HEMOGLOBIN 9.1 g/dL (12.0-18.0); BG TOTAL RESPIRATORY RATE 33 b/min; BG VENT MODE VENT - AC
[2020-08-20] MEDS ORDERED: SODIUM POLYSTYRENE SULFONATE 15 G/60 ML BOT PO SCH (09:00)
[2020-08-20] MEDS: DEXAMETHASONE 10 MG/ML VIAL IV SCH ×2 (09:42→22:15)
[2020-08-20] MEDS: ZINC SULFATE 220 MG ( 50 ) CAPSULE PO SCH (09:44)
[2020-08-20] MEDS: METOPROLOL TARTRATE 25MG TABLET PO SCH ×2 (09:45→22:14)
[2020-08-20] MEDS: FAMOTIDINE 20MG TABLET PO SCH (09:45)
[2020-08-20] MEDS: ASCORBIC ACID 500 MG TABLET PO SCH ×2 (09:46→22:14)
[2020-08-20] MEDS: AMLODIPINE 10MG TABLET PO SCH (09:46)
[2020-08-20] MEDS: ENOXAPARIN 40MG/0.4ML SYR SUBCUT SCH (09:46)
[2020-08-20] MEDS: ASPIRIN 325MG EC TABLET PO SCH (09:46)
[2020-08-20] MEDS: FENTANYL CITRATE/PF 2,500 MCG in SODIUM CHLORIDE 0.9% 200 ML IV PRN ×2 (09:53→21:55)
[2020-08-20] MEDS: MIDAZOLAM HCL 100 MG in DEXT 5% WATER 80 ML IV PRN (09:53)
[2020-08-20] MEDS: INSULIN GLARGINE UD 100 UNITS/ML SYR SUBCUT SCH (10:39)
[2020-08-20] MEDS: SODIUM BICARBONATE 50 MEQ in DEXTROSE 5% WATER 1,000 ML IV SCH (11:14)
[2020-08-20] MEDS ORDERED: DOCUSATE SODIUM 100MG CAPSULE NG PRN (12:30)
[2020-08-20 13:12] LABS: PLATELET ESTIMATE NORMAL
[2020-08-20] MEDS: DOCUSATE SODIUM SUGAR FREE 100MG/10ML UDC NG SCH ×2 (14:04→18:35)
[2020-08-20] MEDS: METOCLOPRAMIDE HCL 10MG/2ML VIAL IV SCH (18:40)
[2020-08-21] VITALS (50 sets, daily range): BP systolic 113–169; BP diastolic 62–106
[2020-08-21] MEDS: IPRATROPIUM/ALBUTEROL 0.5-3(2.5)MG/3ML NEB HHN SCH ×5 (00:46→20:38)
[2020-08-21] MEDS: PROPOFOL 10MG/ML 100ML 100 ML IV PRN ×3 (01:26→10:04)
[2020-08-21] MEDS: METOCLOPRAMIDE HCL 10MG/2ML VIAL IV SCH ×4 (05:20→17:38)
[2020-08-21 05:32] LABS: HEMATOCRIT. 23.1 % (42.0-52.0); HEMOGLOBIN. 7.6 g/dL (14.0-18.0); MEAN CORPUSCULAR HEMOGLOBIN 29.7 pg (28.0-32.0); MEAN CORPUSCULAR VOLUME 90.6 fL (80.0-94.0); MEAN PLATELET VOLUME 10.8 fl (7.4-10.4); PLATELET 298 x1000/uL (130-400); RED BLOOD CELL COUNT 2.55 mill/uL (4.7-6.1); RED CELL DISTRIBUTION WIDTH 13.1 % (11.6-14.6)
[2020-08-21] MEDS: FENTANYL CITRATE/PF 2,500 MCG in SODIUM CHLORIDE 0.9% 200 ML IV PRN ×2 (06:30→16:41)
[2020-08-21] MEDS: BLOOD SUGAR DIAGNOSTIC STRIP TEST SCH ×4 (07:50→21:00)
[2020-08-21] MEDS: SODIUM BICARBONATE 50 MEQ in DEXTROSE 5% WATER 1,000 ML IV SCH (08:37)
[2020-08-21] MEDS: INSULIN LISPRO (HIGH DOSE) 100 UNITS/ML SUBCUT SCH ×4 (08:37→21:00)
[2020-08-21] MEDS: DEXAMETHASONE 10 MG/ML VIAL IV SCH ×2 (08:39→22:00)
[2020-08-21] MEDS: ZINC SULFATE 220 MG ( 50 ) CAPSULE PO SCH (08:39)
[2020-08-21] MEDS: FAMOTIDINE 20MG TABLET PO SCH (08:39)
[2020-08-21] MEDS: ASPIRIN 325MG EC TABLET PO SCH (08:39)
[2020-08-21] MEDS: ASCORBIC ACID 500 MG TABLET PO SCH ×2 (08:41→22:00)
[2020-08-21] MEDS: AMLODIPINE 10MG TABLET PO SCH (08:42)
[2020-08-21] MEDS: METOPROLOL TARTRATE 25MG TABLET PO SCH ×2 (08:42→22:00)
[2020-08-21] MEDS: ENOXAPARIN 40MG/0.4ML SYR SUBCUT SCH (08:44)
[2020-08-21] MEDS: DOCUSATE SODIUM SUGAR FREE 100MG/10ML UDC NG SCH ×2 (08:44→16:08)
[2020-08-21 09:43] LABS: BG BASE EXCESS -2.8 mmol/L (-2.0-2.0); BG CARBOXYHEMOGLOBIN 0.3 % (0.5-1.5); BG DEOXYHEMOGLOBIN 5.8 % (0.0-5.0); BG FRACTION INSPIRED OXYGEN 100; BG HCO3 ACT 23.3 mmol/L (22.0-26.0); BG METHEMOGLOBIN 0.3 % (0.0-1.5); BG OXYGEN SATURATION 94.2 % (92.0-98.5); BG OXYHEMOGLOBIN 93.6 % (94.0-97.0); BG PCO2 46.6 mmHg (35.0-45.0); BG PH 7.316 (7.350-7.450); BG PO2 81.1 mmHg (75.0-100.0); BG SAMPLE SITE RIGHT RADIAL; BG TOTAL HEMOGLOBIN 7.8 g/dL (12.0-18.0); BG TOTAL RESPIRATORY RATE 32 b/min; BG VENT MODE VENT - AC
[2020-08-21] MEDS: INSULIN GLARGINE UD 100 UNITS/ML SYR SUBCUT SCH (10:05)
[2020-08-21] MEDS ORDERED: SODIUM POLYSTYRENE SULFONATE 15 G/60 ML BOT PO NR (11:30)
[2020-08-21] MEDS: MIDAZOLAM HCL 100 MG in DEXT 5% WATER 80 ML IV PRN ×2 (13:07→21:59)
[2020-08-21 15:32] LABS: PLATELET ESTIMATE NORMAL
[2020-08-22] VITALS (82 sets, daily range): BP systolic 70–197; BP diastolic 38–108
[2020-08-22] MEDS: IPRATROPIUM/ALBUTEROL 0.5-3(2.5)MG/3ML NEB HHN SCH ×3 (03:16→20:25)
[2020-08-22] MEDS: FENTANYL CITRATE/PF 2,500 MCG in SODIUM CHLORIDE 0.9% 200 ML IV PRN ×3 (05:17→22:11)
[2020-08-22] MEDS: METOCLOPRAMIDE HCL 10MG/2ML VIAL IV SCH ×5 (05:27→23:26)
[2020-08-22] MEDS: SODIUM BICARBONATE 50 MEQ in DEXTROSE 5% WATER 1,000 ML IV SCH (06:04)
[2020-08-22 06:34] LABS: HEMATOCRIT. 22.8 % (42.0-52.0); HEMOGLOBIN. 7.6 g/dL (14.0-18.0); MEAN CORPUSCULAR HEMOGLOBIN 29.5 pg (28.0-32.0); MEAN CORPUSCULAR VOLUME 89.1 fL (80.0-94.0); MEAN PLATELET VOLUME 10.2 fl (7.4-10.4); PLATELET 303 x1000/uL (130-400); RED BLOOD CELL COUNT 2.56 mill/uL (4.7-6.1); RED CELL DISTRIBUTION WIDTH 13.3 % (11.6-14.6)
[2020-08-22] MEDS: INSULIN LISPRO (HIGH DOSE) 100 UNITS/ML SUBCUT SCH ×4 (07:00→20:27)
[2020-08-22] MEDS: BLOOD SUGAR DIAGNOSTIC STRIP TEST SCH ×4 (07:00→20:27)
[2020-08-22 09:10] LABS: BG BASE EXCESS -1.6 mmol/L (-2.0-2.0); BG CARBOXYHEMOGLOBIN 0.3 % (0.5-1.5); BG DEOXYHEMOGLOBIN 1.8 % (0.0-5.0); BG FRACTION INSPIRED OXYGEN 100; BG HCO3 ACT 24.3 mmol/L (22.0-26.0); BG METHEMOGLOBIN 0.3 % (0.0-1.5); BG OXYGEN SATURATION 98.2 % (92.0-98.5); BG OXYHEMOGLOBIN 97.6 % (94.0-97.0); BG PCO2 46.7 mmHg (35.0-45.0); BG PH 7.334 (7.350-7.450); BG PO2 131.4 mmHg (75.0-100.0); BG SAMPLE SITE RIGHT RADIAL; BG TOTAL HEMOGLOBIN 7.8 g/dL (12.0-18.0); BG VENT MODE VENT - AC
[2020-08-22] MEDS: DOCUSATE SODIUM SUGAR FREE 100MG/10ML UDC NG SCH ×2 (09:36→17:30)
[2020-08-22] MEDS: ASCORBIC ACID 500 MG TABLET PO SCH ×2 (09:36→20:27)
[2020-08-22] MEDS: ENOXAPARIN 40MG/0.4ML SYR SUBCUT SCH (09:36)
[2020-08-22] MEDS: ZINC SULFATE 220 MG ( 50 ) CAPSULE PO SCH (09:36)
[2020-08-22] MEDS: ASPIRIN 325MG EC TABLET PO SCH (09:36)
[2020-08-22] MEDS: FAMOTIDINE 20MG TABLET PO SCH (09:36)
[2020-08-22] MEDS: AMLODIPINE 10MG TABLET PO SCH (09:36)
[2020-08-22] MEDS: METOPROLOL TARTRATE 25MG TABLET PO SCH (09:37)
[2020-08-22] MEDS: INSULIN GLARGINE UD 100 UNITS/ML SYR SUBCUT SCH (09:46)
[2020-08-22] MEDS ORDERED: CLONIDINE 0.1MG TABLET PO PRN (10:30)
[2020-08-22] MEDS: MIDAZOLAM HCL 100 MG in DEXT 5% WATER 80 ML IV PRN (13:30)
[2020-08-22 14:46] LABS: PLATELET ESTIMATE NORMAL
[2020-08-22 16:09] LABS: BG CARBOXYHEMOGLOBIN 0.3 % (0.5-1.5); BG DEOXYHEMOGLOBIN 13.6 % (0.0-5.0); BG FRACTION INSPIRED OXYGEN 100; BG METHEMOGLOBIN 0.3 % (0.0-1.5); BG OXYGEN SATURATION 86.3 % (92.0-98.5); BG OXYHEMOGLOBIN 85.8 % (94.0-97.0); BG PCO2 50.4 mmHg (35.0-45.0); BG PH 7.347 (7.350-7.450); BG SAMPLE SITE RIGHT RADIAL; BG TOTAL HEMOGLOBIN 9.2 g/dL (12.0-18.0); BG TOTAL RESPIRATORY RATE 32 b/min; BG VENT MODE VENT - AC
[2020-08-22] MEDS: DEXTROSE 50% WATER 50ML SYRINGE IV PRN ×2 (16:53→20:27)
[2020-08-22] MEDS: METOPROLOL TARTRATE 50MG TABLET PO SCH (20:28)
[2020-08-22] MEDS ORDERED: SODIUM BICARBONATE IV SCH ×2 (21:00→21:11)
[2020-08-22] MEDS ORDERED: WATER IV SCH ×2 (21:00→21:11)
[2020-08-22] MEDS ORDERED: DEXTROSE 10% IV SCH (21:00)
[2020-08-22] MEDS ORDERED: DEXT 10% IV SCH (21:11)
[2020-08-22] MEDS: NOREPINEPHRINE 32 MG in SODIUM CHLORIDE 0.9% 218 ML IV SCH (23:15)
[2020-08-23] VITALS (98 sets, daily range): BP systolic 91–153; BP diastolic 45–79
[2020-08-23] MEDS: IPRATROPIUM/ALBUTEROL 0.5-3(2.5)MG/3ML NEB HHN SCH ×3 (03:24→20:37)
[2020-08-23 05:27] LABS: HEMATOCRIT. 23.3 % (42.0-52.0); HEMOGLOBIN. 7.4 g/dL (14.0-18.0); MEAN CORPUSCULAR VOLUME 91.4 fL (80.0-94.0); MEAN PLATELET VOLUME 10.7 fl (7.4-10.4); PLATELET 291 x1000/uL (130-400); RED BLOOD CELL COUNT 2.55 mill/uL (4.7-6.1); RED CELL DISTRIBUTION WIDTH 13.4 % (11.6-14.6)
[2020-08-23] MEDS: METOCLOPRAMIDE HCL 10MG/2ML VIAL IV SCH ×4 (05:30→23:53)
[2020-08-23] MEDS: DEXTROSE 50% WATER 50ML SYRINGE IV PRN (05:36)
[2020-08-23 05:51] LABS: CHLORIDE 107 mEq/L (98-107)
[2020-08-23] MEDS: FENTANYL CITRATE/PF 2,500 MCG in SODIUM CHLORIDE 0.9% 200 ML IV PRN ×2 (07:09→23:54)
[2020-08-23] MEDS: MIDAZOLAM HCL 100 MG in DEXT 5% WATER 80 ML IV PRN (07:09)
[2020-08-23] MEDS: BLOOD SUGAR DIAGNOSTIC STRIP TEST SCH ×4 (08:14→21:08)
[2020-08-23] MEDS: INSULIN LISPRO (HIGH DOSE) 100 UNITS/ML SUBCUT SCH ×4 (08:14→21:07)
[2020-08-23] MEDS: ENOXAPARIN 40MG/0.4ML SYR SUBCUT SCH (08:31)
[2020-08-23] MEDS: DOCUSATE SODIUM SUGAR FREE 100MG/10ML UDC NG SCH ×2 (08:31→17:34)
[2020-08-23] MEDS: FAMOTIDINE 20MG TABLET PO SCH (08:31)
[2020-08-23] MEDS: ZINC SULFATE 220 MG ( 50 ) CAPSULE PO SCH (08:31)
[2020-08-23] MEDS: ASCORBIC ACID 500 MG TABLET PO SCH ×2 (08:32→21:05)
[2020-08-23] MEDS: ASPIRIN 325MG EC TABLET PO SCH (08:32)
[2020-08-23] MEDS: METOPROLOL TARTRATE 50MG TABLET PO SCH ×2 (08:33→21:00)
[2020-08-23] MEDS: ACETAMINOPHEN 325MG TABLET PO PRN (08:35)
[2020-08-23] MEDS: AMLODIPINE 10MG TABLET PO SCH (09:00)
[2020-08-23 09:07] LABS: BG BASE EXCESS -1.8 mmol/L (-2.0-2.0); BG CARBOXYHEMOGLOBIN 0.3 % (0.5-1.5); BG DEOXYHEMOGLOBIN 2.7 % (0.0-5.0); BG FRACTION INSPIRED OXYGEN 100; BG HCO3 ACT 24.5 mmol/L (22.0-26.0); BG METHEMOGLOBIN 0.2 % (0.0-1.5); BG OXYGEN SATURATION 97.3 % (92.0-98.5); BG OXYHEMOGLOBIN 96.8 % (94.0-97.0); BG PCO2 50.2 mmHg (35.0-45.0); BG PH 7.306 (7.350-7.450); BG PO2 101.4 mmHg (75.0-100.0); BG SAMPLE SITE RIGHT RADIAL; BG TOTAL HEMOGLOBIN 7.3 g/dL (12.0-18.0); BG TOTAL RESPIRATORY RATE 30 b/min; BG VENT MODE VENT - AC
[2020-08-23] MEDS ORDERED: INSULIN GLARGINE UD 100 UNITS/ML SYR SUBCUT SCH (10:00)
[2020-08-23] MEDS ORDERED: SODIUM POLYSTYRENE SULFONATE 15 G/60 ML BOT PO NR (10:00)
[2020-08-23] MEDS: DEXT 10% WATER 1,000 ML IV SCH (11:36)
[2020-08-23 15:17] LABS: PLATELET ESTIMATE NORMAL
[2020-08-24] VITALS (96 sets, daily range): BP systolic 69–144; BP diastolic 26–84
[2020-08-24] MEDS ORDERED: MIDAZOLAM HCL 100 MG in SODIUM CHLORIDE 0.9% 80 ML IV SCH (02:00)
[2020-08-24] MEDS: IPRATROPIUM/ALBUTEROL 0.5-3(2.5)MG/3ML NEB HHN SCH ×4 (03:13→20:36)
[2020-08-24 06:30] LABS: HEMATOCRIT. 21.8 % (42.0-52.0); MEAN CORPUSCULAR VOLUME 90.7 fL (80.0-94.0); MEAN PLATELET VOLUME 10.6 fl (7.4-10.4); PLATELET 204 x1000/uL (130-400); RED CELL DISTRIBUTION WIDTH 13.5 % (11.6-14.6)
[2020-08-24] MEDS: DEXT 10% WATER 1,000 ML IV SCH (06:42)
[2020-08-24] MEDS: METOCLOPRAMIDE HCL 10MG/2ML VIAL IV SCH ×4 (06:42→23:13)
[2020-08-24] MEDS: INSULIN LISPRO (HIGH DOSE) 100 UNITS/ML SUBCUT SCH ×4 (06:48→21:11)
[2020-08-24 06:49] LABS: CHLORIDE 103 mEq/L (98-107)
[2020-08-24 06:58] LABS: BG BASE EXCESS 5.7 mmol/L (-2.0-2.0); BG CARBOXYHEMOGLOBIN 0.1 % (0.5-1.5); BG FRACTION INSPIRED OXYGEN 100; BG HCO3 ACT 30.7 mmol/L (22.0-26.0); BG METHEMOGLOBIN 0.3 % (0.0-1.5); BG OXYGEN SATURATION 80.9 % (92.0-98.5); BG OXYHEMOGLOBIN 80.6 % (94.0-97.0); BG PCO2 47.9 mmHg (35.0-45.0); BG PH 7.425 (7.350-7.450); BG PO2 45.6 mmHg (75.0-100.0); BG SAMPLE SITE RIGHT RADIAL; BG TOTAL HEMOGLOBIN 7.8 g/dL (12.0-18.0); BG VENT MODE VENT - AC
[2020-08-24] MEDS: BLOOD SUGAR DIAGNOSTIC STRIP TEST SCH ×4 (08:08→21:12)
[2020-08-24] MEDS: DOCUSATE SODIUM SUGAR FREE 100MG/10ML UDC NG SCH ×2 (08:20→17:05)
[2020-08-24] MEDS: ASCORBIC ACID 500 MG TABLET PO SCH ×2 (08:22→21:09)
[2020-08-24] MEDS: ASPIRIN 325MG EC TABLET PO SCH (08:22)
[2020-08-24] MEDS: ZINC SULFATE 220 MG ( 50 ) CAPSULE PO SCH (08:22)
[2020-08-24] MEDS: METOPROLOL TARTRATE 50MG TABLET PO SCH ×2 (08:23→21:16)
[2020-08-24] MEDS: FAMOTIDINE 20MG TABLET PO SCH (08:23)
[2020-08-24] MEDS: ACETAMINOPHEN 325MG TABLET PO PRN ×2 (08:23→13:50)
[2020-08-24] MEDS: ENOXAPARIN 40MG/0.4ML SYR SUBCUT SCH (08:24)
[2020-08-24] MEDS: AMLODIPINE 5MG TABLET PO SCH (09:00)
[2020-08-24 09:52] LABS: *CREATININE RANDOM URINE 90.6 mg/dL (Not Estab.); MICROALBUMIN RANDOM URINE 1245.3 ug/mL (Not Estab.)
[2020-08-24] MEDS: NOREPINEPHRINE 32 MG in SODIUM CHLORIDE 0.9% 218 ML IV SCH (11:03)
[2020-08-24] MEDS ORDERED: INSULIN GLARGINE UD 100 UNITS/ML SYR SUBCUT SCH (12:00)
[2020-08-24] MEDS: FENTANYL CITRATE/PF 2,500 MCG in SODIUM CHLORIDE 0.9% 200 ML IV PRN (12:21)
[2020-08-24 13:31] LABS: BG BASE EXCESS 2.2 mmol/L (-2.0-2.0); BG CARBOXYHEMOGLOBIN 0.4 % (0.5-1.5); BG DEOXYHEMOGLOBIN 42.2 % (0.0-5.0); BG FRACTION INSPIRED OXYGEN 100; BG HCO3 ACT 29.4 mmol/L (22.0-26.0); BG METHEMOGLOBIN 0.2 % (0.0-1.5); BG OXYGEN SATURATION 57.5 % (92.0-98.5); BG OXYHEMOGLOBIN 57.2 % (94.0-97.0); BG PCO2 63.9 mmHg (35.0-45.0); BG PH 7.281 (7.350-7.450); BG PO2 33.9 mmHg (75.0-100.0); BG SAMPLE SITE LEFT RADIAL; BG TOTAL HEMOGLOBIN 7.3 g/dL (12.0-18.0); BG TOTAL RESPIRATORY RATE 30 b/min; BG VENT MODE VENT - AC
[2020-08-24] MEDS: MIDAZOLAM HCL 100 MG in DEXT 5% WATER 80 ML IV SCH (16:20)
[2020-08-24 18:23] LABS: PLATELET ESTIMATE NORMAL
[2020-08-24] MEDS: INSULIN GLARGINE UD 100 UNITS/ML SYR SUBCUT SCH (21:14)
[2020-08-24 21:33] LABS: HEMATOCRIT. 22.3 % (42.0-52.0); HEMOGLOBIN. 7.1 g/dL (14.0-18.0); MEAN PLATELET VOLUME 10.2 fl (7.4-10.4); PLATELET 184 x1000/uL (130-400); RED BLOOD CELL COUNT 2.45 mill/uL (4.7-6.1); RED CELL DISTRIBUTION WIDTH 13.5 % (11.6-14.6)
[2020-08-24 21:59] LABS: PLATELET ESTIMATE NORMAL
[2020-08-25] VITALS (114 sets, daily range): BP systolic 70–213; BP diastolic 26–111
[2020-08-25] MEDS: IPRATROPIUM/ALBUTEROL 0.5-3(2.5)MG/3ML NEB HHN SCH ×4 (03:06→20:57)
[2020-08-25] MEDS: DEXT 10% WATER 1,000 ML IV SCH (03:27)
[2020-08-25] MEDS: MIDAZOLAM HCL 100 MG in DEXT 5% WATER 80 ML IV SCH ×2 (04:10→15:12)
[2020-08-25] MEDS: FENTANYL CITRATE/PF 2,500 MCG in SODIUM CHLORIDE 0.9% 200 ML IV PRN ×2 (04:17→21:11)
[2020-08-25] MEDS: METOCLOPRAMIDE HCL 10MG/2ML VIAL IV SCH ×3 (06:24→18:00)
[2020-08-25] MEDS: INSULIN LISPRO (HIGH DOSE) 100 UNITS/ML SUBCUT SCH ×4 (06:27→21:28)
[2020-08-25] MEDS: BLOOD SUGAR DIAGNOSTIC STRIP TEST SCH ×4 (06:29→21:35)
[2020-08-25] MEDS: AMLODIPINE 5MG TABLET PO SCH (09:00)
[2020-08-25] MEDS: METOPROLOL TARTRATE 50MG TABLET PO SCH ×2 (09:00→21:10)
[2020-08-25 09:41] LABS: BG BASE EXCESS 1.5 mmol/L (-2.0-2.0); BG CARBOXYHEMOGLOBIN 0.6 % (0.5-1.5); BG DEOXYHEMOGLOBIN 12.5 % (0.0-5.0); BG FRACTION INSPIRED OXYGEN 100; BG HCO3 ACT 26.6 mmol/L (22.0-26.0); BG METHEMOGLOBIN 0.3 % (0.0-1.5); BG OXYGEN SATURATION 87.4 % (92.0-98.5); BG OXYHEMOGLOBIN 86.6 % (94.0-97.0); BG PCO2 44.4 mmHg (35.0-45.0); BG PH 7.395 (7.350-7.450); BG PO2 53.5 mmHg (75.0-100.0); BG SAMPLE SITE RIGHT RADIAL; BG TOTAL HEMOGLOBIN 7.4 g/dL (12.0-18.0); BG TOTAL RESPIRATORY RATE 33 b/min; BG VENT MODE VENT - AC
[2020-08-25] MEDS: FAMOTIDINE 20MG TABLET PO SCH (10:37)
[2020-08-25] MEDS: DOCUSATE SODIUM SUGAR FREE 100MG/10ML UDC NG SCH ×2 (10:37→16:43)
[2020-08-25] MEDS: ASPIRIN 325MG EC TABLET PO SCH (10:38)
[2020-08-25] MEDS: ENOXAPARIN 40MG/0.4ML SYR SUBCUT SCH (10:38)
[2020-08-25] MEDS: ZINC SULFATE 220 MG ( 50 ) CAPSULE PO SCH (10:38)
[2020-08-25 12:54] LABS: HEMATOCRIT. 26.6 % (42.0-52.0); HEMOGLOBIN. 8.4 g/dL (14.0-18.0); MEAN CORPUSCULAR HEMOGLOBIN 29.3 pg (28.0-32.0); MEAN CORPUSCULAR VOLUME 92.8 fL (80.0-94.0); MEAN PLATELET VOLUME 10.4 fl (7.4-10.4); PLATELET 196 x1000/uL (130-400); RED BLOOD CELL COUNT 2.86 mill/uL (4.7-6.1); RED CELL DISTRIBUTION WIDTH 13.6 % (11.6-14.6)
[2020-08-25] MEDS: ASCORBIC ACID 500 MG TABLET PO SCH ×2 (13:05→21:10)
[2020-08-25] MEDS ORDERED: SODIUM POLYSTYRENE SULFONATE 15 G/60 ML BOT PO NR (14:00)
[2020-08-25 14:37] LABS: PLATELET ESTIMATE NORMAL
[2020-08-25] MEDS ORDERED: SODIUM CHLORIDE 0.9% 500 ML IV ONE (15:00)
[2020-08-25] MEDS: DEXT 5%/0.9% NACL 1,000 ML IV SCH (15:12)
[2020-08-25] MEDS: ACETAMINOPHEN 325MG TABLET PO PRN (16:44)
[2020-08-25] MEDS: INSULIN GLARGINE UD 100 UNITS/ML SYR SUBCUT SCH (21:28)
[2020-08-26] VITALS (85 sets, daily range): BP systolic 102–170; BP diastolic 32–95
[2020-08-26] MEDS ORDERED: NOREPINEPHRINE 64 MG in SODIUM CHLORIDE 0.9% 436 ML IV SCH (00:15)
[2020-08-26] MEDS: METOCLOPRAMIDE HCL 10MG/2ML VIAL IV SCH ×4 (00:22→18:03)
[2020-08-26] MEDS: DEXT 5%/0.9% NACL 1,000 ML IV SCH ×2 (00:24→12:06)
[2020-08-26] MEDS: ACETAMINOPHEN 325MG TABLET PO PRN ×2 (00:33→21:46)
[2020-08-26] MEDS: IPRATROPIUM/ALBUTEROL 0.5-3(2.5)MG/3ML NEB HHN SCH ×4 (02:40→20:26)
[2020-08-26 06:09] LABS: CHLORIDE 101 mEq/L (98-107)
[2020-08-26 06:12] LABS: HEMATOCRIT. 24.3 % (42.0-52.0); HEMOGLOBIN. 7.8 g/dL (14.0-18.0); MEAN CORPUSCULAR HEMOGLOBIN 29.9 pg (28.0-32.0); MEAN CORPUSCULAR VOLUME 93.2 fL (80.0-94.0); MEAN PLATELET VOLUME 10.6 fl (7.4-10.4); PLATELET 200 x1000/uL (130-400); RED BLOOD CELL COUNT 2.61 mill/uL (4.7-6.1); RED CELL DISTRIBUTION WIDTH 13.6 % (11.6-14.6)
[2020-08-26 06:32] LABS: PHOSPHORUS 8.9 mg/dL (2.5-4.9)
[2020-08-26] MEDS: BLOOD SUGAR DIAGNOSTIC STRIP TEST SCH ×4 (07:50→21:41)
[2020-08-26] MEDS ORDERED: SODIUM POLYSTYRENE SULFONATE 15 G/60 ML BOT PO SCH (08:00)
[2020-08-26 08:50] LABS: BG BASE EXCESS -1.4 mmol/L (-2.0-2.0); BG CARBOXYHEMOGLOBIN 0.3 % (0.5-1.5); BG DEOXYHEMOGLOBIN 17.7 % (0.0-5.0); BG FRACTION INSPIRED OXYGEN 100; BG HCO3 ACT 27.7 mmol/L (22.0-26.0); BG METHEMOGLOBIN 0.3 % (0.0-1.5); BG OXYGEN SATURATION 82.2 % (92.0-98.5); BG OXYHEMOGLOBIN 81.7 % (94.0-97.0); BG PCO2 74.8 mmHg (35.0-45.0); BG PH 7.186 (7.350-7.450); BG PO2 53.4 mmHg (75.0-100.0); BG SAMPLE SITE RIGHT RADIAL; BG TOTAL HEMOGLOBIN 9.4 g/dL (12.0-18.0); BG TOTAL RESPIRATORY RATE 32 b/min; BG VENT MODE VENT - AC
[2020-08-26] MEDS: METOPROLOL TARTRATE 50MG TABLET PO SCH (09:00)
[2020-08-26] MEDS: ASCORBIC ACID 500 MG TABLET PO SCH ×2 (09:19→21:41)
[2020-08-26] MEDS: FAMOTIDINE 20MG TABLET PO SCH (09:19)
[2020-08-26] MEDS: DOCUSATE SODIUM SUGAR FREE 100MG/10ML UDC NG SCH ×2 (09:19→18:03)
[2020-08-26] MEDS: ZINC SULFATE 220 MG ( 50 ) CAPSULE PO SCH (09:19)
[2020-08-26] MEDS: INSULIN LISPRO (HIGH DOSE) 100 UNITS/ML SUBCUT SCH ×4 (09:30→21:00)
[2020-08-26] MEDS ORDERED: DEXTROSE 50% WATER 50ML SYRINGE IV NR (10:00)
[2020-08-26] MEDS ORDERED: INSULIN REGULAR (HUMULIN R) 300UNITS/3ML VIAL IV NR (10:00)
[2020-08-26] MEDS ORDERED: CALCIUM GLUCONATE 1GM PREMIX 50 ML IV SCH (12:00)
[2020-08-26] MEDS: MIDAZOLAM HCL 100 MG in DEXT 5% WATER 80 ML IV SCH (12:15)
[2020-08-26] MEDS ORDERED: FENTANYL CITRATE/PF 2,500 MCG in SODIUM CHLORIDE 0.9% 200 ML IV PRN (17:15)
[2020-08-26 17:56] LABS: PLATELET ESTIMATE NORMAL
[2020-08-26] MEDS: INSULIN GLARGINE UD 100 UNITS/ML SYR SUBCUT SCH (21:42)
[2020-08-26] MEDS ORDERED: HEPARIN SODIUM 1,000 UNIT/1ML VIAL IV NR (23:00)
[2020-08-27] VITALS: BP 103/52
[2020-08-27] MEDS: METOCLOPRAMIDE HCL 10MG/2ML VIAL IV SCH (00:25)
[2020-08-27 01:00] VITALS: BP 121/83
[2020-08-27 02:00] VITALS: BP 118/62
[2020-08-27 02:51] LABS: BG BASE EXCESS -1.2 mmol/L (-2.0-2.0); BG CARBOXYHEMOGLOBIN 0.1 % (0.5-1.5); BG DEOXYHEMOGLOBIN 21.8 % (0.0-5.0); BG FRACTION INSPIRED OXYGEN 100; BG HCO3 ACT 28.8 mmol/L (22.0-26.0); BG METHEMOGLOBIN 0.1 % (0.0-1.5); BG OXYGEN SATURATION 78.2 % (92.0-98.5); BG PCO2 78.4 mmHg (35.0-45.0); BG PH 7.183 (7.350-7.450); BG PO2 48.5 mmHg (75.0-100.0); BG TOTAL HEMOGLOBIN 12.3 g/dL (12.0-18.0); BG VENT MODE VENT - AC
[2020-08-27 03:00] VITALS: BP 119/62
[2020-08-27] MEDS ORDERED: SODIUM BICARBONATE 8.4% 1 MEQ/ML 50ML SYR IV ONE (03:00)
[2020-08-27] MEDS ORDERED: CALCIUM CHLORIDE 1GM/10ML SYR IV ONE (03:00)
[2020-08-27] MEDS ORDERED: DEXTROSE 50% WATER 50ML SYRINGE IV ONE (03:00)
[2020-08-27] MEDS ORDERED: EPINEPHRINE 0.1MG/ML (1:10,000) 10ML SYR ONE (03:00)
[2020-08-27 04:00] VITALS: BP 124/72
[2020-08-27] MEDS ORDERED: VASOPRESSIN 20 UNIT in SODIUM CHLORIDE 0.9% 99 ML IV PRN (05:00)
[2020-08-27] MEDS ORDERED: PHENYLEPHRINE 100 MG in DEXT 5% WATER 240 ML IV PRN (05:00)
== END 2020-08-27 05:01 | disposition expired | DRG 720 ==
LOC: ER 17:20 → MICUSO 21:23 → EDBEDREQSVC 21:30 → EDBEDREQTM 21:30 → EDBEDREQ 21:30 → CVICU 08-15 02:49
PROVIDERS: ADMIT Internal Medicine; ATTEND Internal Medicine
PROC: 5A09457 Assistance with Respiratory Ventilation, 24-96 Consecutive Hours, Continuous Positive Airway Pressure (ICD-10-PCS; 2020-08-10)
PROC: 5A1955Z Respiratory Ventilation, Greater than 96 Consecutive Hours (ICD-10-PCS; principal; 2020-08-14)
PROC: 0BH17EZ Insertion of Endotracheal Airway into Trachea, Via Natural or Artificial Opening (ICD-10-PCS; 2020-08-14)
PROC: 06HY33Z Insertion of Infusion Device into Lower Vein, Percutaneous Approach (ICD-10-PCS; 2020-08-15)
PROC: B54BZZA Ultrasonography of Right Lower Extremity Veins, Guidance (ICD-10-PCS; 2020-08-15)
PROC: B548ZZA Ultrasonography of Superior Vena Cava, Guidance (ICD-10-PCS; 2020-08-18)
PROC: 02HV33Z Insertion of Infusion Device into Superior Vena Cava, Percutaneous Approach (ICD-10-PCS; 2020-08-18)
PROC: B5181ZA Fluoroscopy of Superior Vena Cava using Low Osmolar Contrast, Guidance (ICD-10-PCS; 2020-08-18)
PROC: 0B21XEZ Change Endotracheal Airway in Trachea, External Approach (ICD-10-PCS; 2020-08-22)
PROC: 30233N1 Transfusion of Nonautologous Red Blood Cells into Peripheral Vein, Percutaneous Approach (ICD-10-PCS; 2020-08-24)
PROC: 5A12012 Performance of Cardiac Output, Single, Manual (ICD-10-PCS; 2020-08-27)
DX: A41.89 Other specified sepsis (principal); U07.1 COVID-19; G92 Toxic encephalopathy; J96.01 Acute respiratory failure with hypoxia; N17.0 Acute kidney failure with tubular necrosis; D72.810 Lymphocytopenia; E43 Unspecified severe protein-calorie malnutrition; E66.9 Obesity, unspecified; E83.51 Hypocalcemia; T38.0X5A Adverse effect of glucocorticoids and synthetic analogues, initial encounter; N18.9 Chronic kidney disease, unspecified; E11.22 Type 2 diabetes mellitus with diabetic chronic kidney disease; I12.9 Hypertensive chronic kidney disease with stage 1 through stage 4 chronic kidney disease, or unspecified chronic kidney disease; E78.1 Pure hyperglyceridemia; E87.0 Hyperosmolality and hypernatremia; E87.5 Hyperkalemia; J12.82 Pneumonia due to coronavirus disease 2019; J45.901 Unspecified asthma with (acute) exacerbation; E83.39 Other disorders of phosphorus metabolism; D64.9 Anemia, unspecified; E11.65 Type 2 diabetes mellitus with hyperglycemia; E11.649 Type 2 diabetes mellitus with hypoglycemia without coma; E87.2 Acidosis; I46.9 Cardiac arrest, cause unspecified; Z79.899 Other long term (current) drug therapy; Z68.23 Body mass index [BMI] 23.0-23.9, adult; R65.20 Severe sepsis without septic shock
CPT/HCPCS: 36415; 36556; 36600; 71045; 76770; 76937; 80048; 80053; 81003; 82010; 82043; 82375; 82550; 82553; 82570; 82607; 82728; 82746; 82805; 82962; 83036; 83540; 83550; 83605; 83615; 83735; 83880; 84100; 84132; 84145; 84156; 84300; 84478; 84484; 85025; 85379; 86140; 86850; 86900; 86920; 87070; 87107; 87804; 93005; 93970; 94003; 94640; 94660; 96365; 99291; A6261; C1752; J0456; J0610; J0696; J1100; J1642; J1644; J1650; J1815; J2060; J2250; J2405; J2704; J2765; J3010; J3490; J7030; J7040; J7042; J7050; J7060; J7070; P9016; U0003; A4315